=== PATIENT | female | born 1965 | race African-American/Black ===

== ENCOUNTER 2018-09-03 11:59 | Day surgery (SDC) | payer BC ==
[~2018-09-03] VITALS: Ht 160 cm; Wt 139.7 kg
[2018-09-03] MEDS ORDERED: NORVASC10 MG PO (12:41)
[2018-09-03] MEDS ORDERED: VOLTAREN75 MG PO (12:42)
[2018-09-03] MEDS ORDERED: LEVOXYL50 MCG PO (12:43)
[2018-09-03] MEDS ORDERED: HCTZ25 MG PO (12:43)
[2018-09-03] MEDS ORDERED: PRAVACHOL40 MG PO (12:44)
[2018-09-03 12:45] VITALS: BP 120/69; Ht 160 cm; Wt 139.7 kg
[2018-09-03 13:03] LABS: MCH 30.8 pg (26.0-34.0); MCHC 34.1 g/dL (31.0-37.0); MCV 90.1 fL (80.0-100.0); MEAN PLATELET VOLUME 10.3 fL (7.4-10.4); RBC 4.55 10x6/uL (4.00-5.40); RDW 14.2 % (11.5-14.5); WBC 9.3 10x3/uL (4.8-10.8)
--- NOTE | 2018-09-03 14:08 | NUR ---
1400-RECD TO ROOM FROM GI LAB. ALERT. IV PATENT. FULL LIQUIDS SERVED. 1408-DR BOWMAN IN ROOM TO REPORT FINDINGS.
--- NOTE | 2018-09-03 14:56 | NUR ---
1430-UP TO BATHROOM, VOIDS AND IV D/C 1445-DISCHARGE INSTRUCTIONS REVIEWED 1455-D/C HOME VIA WHEELCHAIR WITH SPOUSE.
--- NOTE | 2018-09-05 09:41 | OP ---
PATIENT NAME: JHONNY ECHEVARRIA MEDICAL RECORD: [id number] :69 LOCATION:[facility] ADMISSION DATE: SURGEON: LILIBETH BOWMAN DO DATE OF OPERATION: 09/03/2018 PROCEDURE: Colonoscopy with polypectomy. INDICATIONS FOR PROCEDURE: Screening for colorectal cancer. SCOPE: Olympus video pediatric colonoscope. MEDICATIONS: Propofol 460 mg IV per anesthesia. WITHDRAWAL TIME: 22 minutes. ESTIMATED BLOOD LOSS: Minimal. COMPLICATIONS: None. FINDINGS AND DESCRIPTION OF PROCEDURE: Informed consent was given. The patient was made comfortable with the above medication. After reaching an adequate level of sedation by slow IV push, the patient was placed on her left side. A digital rectal examination was performed and was normal. The endoscope was advanced under direct visualization through the rectum to the cecum, confirmed by the presence of the appendiceal orifice and ileocecal valve. The endoscope was slowly withdrawn and mucosa was carefully examined. The prep quality was excellent. There were 2 polyps located in the descending colon, which were benign-appearing and sessile. They ranged in size from 2-3 mm in diameter. They were both removed using hot forceps. In the rectum, there was a subepithelial nodule, which measured approximately 1-1.2 cm in size. Multiple cold forceps biopsies were taken, but these did not appear to be deep enough or any diagnostic tissue. A hot snare was used to remove the nodule in one piece completely. There was a small defect left behind, so a single endoclip was used for tissue positioning to prevent any complications after the patient leaves our facility. Retroflexion was performed in the rectum with visualization of grade I internal hemorrhoids without active bleeding. The endoscope was withdrawn from the patient. The patient tolerated the procedure well and there were no complications. IMPRESSION: 1. Two descending colon polyps removed using hot forceps. 2. Subepithelial nodule in the rectum, which was removed using a snare and was biopsied using cold forceps. 3. Grade I internal hemorrhoids without active bleeding. PLAN AND RECOMMENDATIONS: 1. Discharge home when recovery parameters are met. 2. Follow up biopsy specimen results. 3. High fiber diet. 4. Continue current medications. 5. Recall colonoscopy will be dependent on results of pathology today. I anticipate a recall needed in 5 years' time. TRANSINT:[id number] Voice Confirmation ID: [id number] DOCUMENT ID: [id number] OPERATIVE REPORT [id number] WALEJHONNY MENDOZA NATHAN A DO at 0941 CC: [id number] DICTATION DATE: 09/03/18 1348 [employer] EXCHANGE REPAIRER: 09/03/18 1425 [facility] 09/03/18 [facility] [address] [place] [address]
== END 2018-09-03 14:55 | disposition home or self-care (01) ==
LOC: D.OPS 11:59
PROVIDERS: Anesthesiology
DX: Z12.11 Encounter for screening for malignant neoplasm of colon (principal); K63.5 Polyp of colon; C7A.026 Malignant carcinoid tumor of the rectum; K64.0 First degree hemorrhoids; Z01.812 Encounter for preprocedural laboratory examination

== ENCOUNTER 2018-11-16 08:59 | Day surgery (SDC) | payer BC ==
[~2018-11-16] VITALS: Ht 160 cm; Wt 137.0 kg
[~2018-11-16 08:59] MED LIST: HCTZ25 MG PO; LEVOXYL50 MCG PO; MULTI-DAY VITAM1 TAB PO; NORVASC10 MG PO; POTASSIUM99 M1 PO; PRAVACHOL40 MG PO; VITAMIN B-12500 MCG PO; VOLTAREN75 MG PO
[2018-11-16 09:44] LABS: ANION GAP 12.7 mmol/L (8-16); CALCIUM 9.4 mg/dL (8.5-10.1); CARBON DIOXIDE 30.5 mmol/L (21.0-32.0); CREATININE - SERUM 0.9 mg/dL (0.6-1.3); POTASSIUM - SERUM 3.2 mmol/L (3.5-5.1)
[2018-11-16 09:45] LABS: APTT 28.3 SECONDS (22.8-39.4); INR 1.04 (0.85-1.17); PROTIME 13.1 SECONDS (11.6-15.0)
[2018-11-16 10:13] LABS: BASOPHILS 0.6 % (0-2); EOSINOPHILS 4.6 % (0-7); HEMATOCRIT 42.1 % (36.0-48.0); HEMOGLOBIN 15.1 g/dL (12-16); IMMATURE GRANULOCYTES 0.3 % (0-5); LYMPHOCYTES 30.4 % (15-50); MCH 31.3 pg (26.0-34.0); MCHC 35.9 g/dL (31.0-37.0); MCV 87.2 fL (80.0-100.0); MEAN PLATELET VOLUME 10.2 fL (7.4-10.4); MONOCYTES 6.2 % (2-11); NEUTROPHILS 57.9 % (40-80); PLATELET COUNT 310 10x3/uL (130-400); RBC 4.83 10x6/uL (4.00-5.40); RDW 14.5 % (11.5-14.5); WBC 10.9 10x3/uL (4.8-10.8)
[2018-11-16 10:14] VITALS: BP 124/79; Ht 160 cm; Wt 137.0 kg
--- NOTE | 2018-11-16 14:04 | NUR ---
PT LEAVING OPS AT THIS TIME VIA WC.
--- NOTE | 2018-11-16 14:13 | NUR ---
DC INSTRUCTIONS GIVEN TO PT. PT STATES UNDERSTANDING. DC'D IV CATH,INTACT NO REDNESS OR SWELLING NOTED AT SITE.
--- NOTE | 2018-11-22 16:09 | OP ---
PATIENT NAME: JHONNY ECHEVARRIA MEDICAL RECORD: [id number] :69 LOCATION:[facility] ADMISSION DATE: SURGEON: CRISTOFER MIGUEL MD DATE OF OPERATION: 11/16/2018 PREOPERATIVE DIAGNOSES: 1. Rectal carcinoid. 2. Morbid obesity. 3. Hypertension. 4. Hypercholesterolemia. POSTOPERATIVE DIAGNOSES: 1. Rectal carcinoid. 2. Morbid obesity. 3. Hypertension. 4. Hypercholesterolemia. PROCEDURE: Flexible sigmoidoscopy. SURGEON: Cristofer Miguel MD REPORT OF PROCEDURE: The patient was placed in the lithotomy position. An Olympus endoscope was advanced through the anus. We were able to pass the scope up to 50 cm with ease. As we pulled the scope back, we saw no evidence of masses, lesions, or diverticula. Special attention was paid to the anorectal region as this is where a carcinoid tumor had been found at approximately 6 cm from the anal verge at the previous endoscopy. I saw no evidence of a mass or lesion present. There were no ulcerations and no scarring. The tissues appeared to be normal. At the conclusion of the case, I removed the scope and did a digital rectal exam and could not feel any evidence of a mass or lesion. COMPLICATIONS: None. CONDITION: Stable. ANESTHESIA: General endotracheal. BLOOD LOSS: None. TRANSINT:[id number] Voice Confirmation ID: [id number] DOCUMENT ID: [id number] cc: Dr. Stout, not found. CRISTOFER MIGUEL MD at 1609 CC: NINI HERNANDEZ MD and LILIBETH BOWMAN DO [id number] DICTATION DATE: 11/16/18 1155 [employer] ADMINISTRATOR: 11/16/18 1217 [facility] 11/16/18 [id number] [place] [address]
== END 2018-11-16 14:04 | disposition home or self-care (01) ==
LOC: D.OPS 08:59
PROVIDERS: Anesthesiology; ATTEND Surgery
DX: D3A.026 Benign carcinoid tumor of the rectum (principal); E66.01 Morbid (severe) obesity due to excess calories; I10 Essential (primary) hypertension; E78.00 Pure hypercholesterolemia, unspecified; Z01.812 Encounter for preprocedural laboratory examination